=== PATIENT | female | born 1970 | race Caucasian/White ===

== ENCOUNTER 2024-03-04 09:41 | Emergency (ER) | payer OTHER, SELFPAY ==
[2024-03-04 09:43] VITALS: BP 103/71
--- NOTE | 2024-03-04 10:10 | ED.GENMED ---
History of Present Illness
General
Chief Complaint: Musculo-Skeletal Complaint
Source: patient
Time Seen by Provider: 03/04/24 09:49
History of Present Illness
History of Present Illness:
53-year-old female with past medical history of hypertension and previous CA presenting to the emergency department for evaluation of left ankle pain after she was walking yesterday evening and tripped down 1 stair. Patient notes significant pain
and swelling to the anterior and lateral aspect of her ankle with difficulty ambulating. Patient denies any previous history of injury or surgery. Did not take anything for pain prior to arrival. No other injuries sustained.
Past History
Past History
ED Past Medical History: HTN, CA and Hypothyroidism
ED Past Surgical History: Other
Social History
Tobacco: Non-smoker
Alcohol: Occasional
Drug: None
Personal: Single
Living: with family
Employment: Employed
Review of Systems
Review of Systems
All Other Systems: ROS reviewed and negative except as documented in HPI and ROS
Phy Exam
Physical Exam
Physical Exam:
GENERAL: Alert , in no apparent distress
EYE: conjunctiva clear
Head: Normocephalic atraumatic
NECK: Supple,
ENT: mmm.
LUNGS: no acute respiratory distress
NEUROLOGICAL: Alert and oriented
SKIN: Warm and dry, skin intact.
MUSCULOSKELETAL: Left lower extremity: Moderate soft tissue swelling to the left lateral ankle and anterior aspect. There is moderate tenderness over this area. There is small excoriated area from a bug bite along the anterior surface of the ankle
just proximal to the main area of edema. No surrounding cellulitic signs. Patient has no proximal tib-fib tenderness. No tenderness at the base of the fifth metatarsal. Easily palpable pedal pulse. Cap refill less than 2 seconds. Sensation is
grossly intact to light touch
PSYCH: Normal and appropriate interaction.
Scores
Heart Failure Risk
Heart Failure Risk Score: Not Applicable
Heart Score for Chest Pain Patients
STEMI patient?: Not applicable
Withdrawal Assessment of Alcohol
Withdrawal Assessment Completed?: Not applicable
Course
Orders/Labs/Results
Orders:
Orders
03/04/24 09:48
Ankle, left 3 view CR [CR Ankle - Left Min 3 Views ] Urgent
Comment:
Reason For Exam: left ankle swollen tripped down one step yesterday
03/04/24 10:11
Crutches-Treatment ONCE
Ortho Boot Left- Treatment ONCE
Short or tall?: Tall
Vital Signs
Initial and Last Documented VS:
Initial Vital Signs
Temp Pulse Resp BP Pulse Ox
98.0 F 78 16 103/71 98
03/04/24 09:43 03/04/24 09:43 03/04/24 09:43 03/04/24 09:43 03/04/24 09:43
Last Documented Vital Signs
Temp Pulse Resp BP Pulse Ox
98.0 F 78 16 103/71 98
03/04/24 09:43 03/04/24 09:43 03/04/24 09:43 03/04/24 09:43 03/04/24 09:43
MDM/Problems Addressed
Differential Diagnosis Includes:
Fracture, sprain, contusion
MDM/Problems Addressed:
53-year-old female presenting to the emergency department for evaluation of left ankle pain following an accidental injury last night while walking downstairs. X-ray ordered from triage. X-ray ultimately shows a suspected avulsion fracture off of
the calcaneus. Will place an orthopedic boot and crutches. Advised NSAIDs/Tylenol as needed for pain. RICE recommendations discussed. Information for orthopedics provided. Patient is otherwise stable for discharge home.
*Radiology
Radiology exam reviewed: radiology read reviewed ( avulsion off of calcaneus)
*Pulse Oximetry
Patient hypoxic: no
*Critical Care Note
Total Time (30-74mins, 75-104mins- exclusive of procedures): Not Applicable
ED Attending Note
-
Portions of this chart may have been created with voice recognition software.� Occasional wrong word or��sound alike� substitutions may have occurred due to the inherent limitations of voice recognition software.
Discharge Plan
Departure
Patient Disposition: Home (Routine Discharge)
Date of Disposition: 03/04/24
Time of Disposition: 10:10
Patient with high blood pressure during this ER visit?: No
Discharge Problem:
Avulsion fracture of calcaneus
Instructions: Ankle Fracture (DC)
Referrals:
Gregory Menard MD [Active] - (Ortho)
Interventions
Interventions:
*Risk Screen - Suicide Last Done: 03/04/24 09:43
*Neglect/Abuse Screening Last Done: 03/04/24 09:43
ED- Fall Risk Assessment Last Done: 03/04/24 10:01
ED-Musculoskeletal Assessment Last Done: 03/04/24 10:01
Discharge Date and Time
Print Language: [place]IZ[place]
== END 2024-03-04 10:45 | disposition home or self-care (01) ==
LOC: EMR 09:41
PROVIDERS: EMERGENCY PHYSICIAN Emergency Medicine; FAMILY PHYSICIAN Family Medicine
DX: S92.002A Unspecified fracture of left calcaneus, initial encounter for closed fracture (principal); W10.9XXA Fall (on) (from) unspecified stairs and steps, initial encounter; I10 Essential (primary) hypertension
CPT/HCPCS: 99283; 73610